=== PATIENT | female | born 1995 | race Caucasian/White ===

== ENCOUNTER → 2020-05-19 | Day surgery (SDC) | payer OTHER ==
[~2020-05-19] MED LIST: ANAPROX DS550 MG PO
[2020-05-19 06:59] LABS: HEMOGLOBIN 12.7 gm/dl (12.3-15.3); RED BLOOD COUNT 4.36 M/UL (4.00-5.10); WHITE BLOOD COUNT 6.3 K/UL (4.5-11.0)
== END | disposition home or self-care (01) ==
LOC: OR 06:08
PROVIDERS: Obstetrics & Gynecology
PROC: 10D17ZZ Extraction of Products of Conception, Retained, Via Natural or Artificial Opening (ICD-10-PCS; principal; 2020-05-19 07:30)
DX: O02.1 Missed abortion (principal); F32.9 Major depressive disorder, single episode, unspecified; F41.9 Anxiety disorder, unspecified; D64.9 Anemia, unspecified; Z87.891 Personal history of nicotine dependence; Z20.822 Contact with and (suspected) exposure to COVID-19
CPT/HCPCS: 36415; 81001; 85025; J1100; J2210; J2250; J2405; J2704; J3010; J7120

== ENCOUNTER 2021-06-14 05:32 | Inpatient (IN) | payer OTHER ==
[~2021-06-14] VITALS: Ht 157.5 cm; Wt 78.9 kg
[2021-06-14] MEDS ORDERED: GUMMI BEAR MUL1 EACH PO (06:20)
[2021-06-14 06:53] LABS: HEMOGLOBIN 11.6 gm/dl (12.3-15.3); RED BLOOD COUNT 4.46 M/UL (4.00-5.10); WHITE BLOOD COUNT 9.6 K/UL (4.5-11.0)
[2021-06-14] MEDS ORDERED: IBUPROFEN600 MG PO (07:58)
[2021-06-14] MEDS ORDERED: DOCUSATE SODIU100 MG PO (07:58)
[2021-06-14] MEDS ORDERED: HYDROCODON-ACE1 EAC4 PO (07:58)
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
[2021-06-15 05:46] LABS: HEMOGLOBIN 10.4 gm/dl (12.3-15.3)
== END 2021-06-16 14:12 | disposition home or self-care (01) | DRG 788 ==
LOC: OB 05:32
PROVIDERS: ADMIT Obstetrics & Gynecology
PROC: 4A1HXCZ Monitoring of Products of Conception, Cardiac Rate, External Approach (ICD-10-PCS; 2021-06-14)
PROC: 3E0234Z Introduction of Serum, Toxoid and Vaccine into Muscle, Percutaneous Approach (ICD-10-PCS; 2021-06-14)
PROC: 3E02340 Introduction of Influenza Vaccine into Muscle, Percutaneous Approach (ICD-10-PCS; 2021-06-14)
PROC: 10D00Z1 Extraction of Products of Conception, Low, Open Approach (ICD-10-PCS; principal; 2021-06-14 07:30)
DX: O36.63X0 Maternal care for excessive fetal growth, third trimester, not applicable or unspecified (principal); Z3A.39 39 weeks gestation of pregnancy; Z37.0 Single live birth; Z20.822 Contact with and (suspected) exposure to COVID-19; Z83.3 Family history of diabetes mellitus; Z80.9 Family history of malignant neoplasm, unspecified; Z82.0 Family history of epilepsy and other diseases of the nervous system; Z81.8 Family history of other mental and behavioral disorders; Z23 Encounter for immunization
CPT/HCPCS: 36415; 81001; 82800; 82962; 85014; 85018; 85025; 90686; 90715; C9113; G0008; J0690; J1885; J2274; J2370; J2405; J2590; J3010; J7120